=== PATIENT | female | born 1990 | race Asian ===

== ENCOUNTER 2017-02-08 03:04 | Inpatient (IN) | payer MEDICAID ==
[~2017-02-08] VITALS: Ht 165.1 cm; Wt 72.7 kg
[2017-02-08] VITALS (36 sets, daily range): BP systolic 78–137; BP diastolic 53–94; PULSE 69–112; TEMP 97.9–98.5
[2017-02-08 03:58] LABS: BASO % 0.2 % (0.0-2.0); EOS # 0.1 (0.0-0.7); GRAN # 7.4 (1.4-6.5); LYMPH # 3.5 (1.2-3.4); LYMPH % 29.9 % (20.0-51.0); MEAN CELL VOLUME 83 fl (80.0-100.0); MEAN CORPUSCULAR HEMOGLOBIN 28 pg (27.0-31.0); MEAN CORPUSCULAR HGB CONC 34 g/dl (33.0-37.0); MEAN PLATELET VOLUME 10.2 fl (7.4-10.4); MONO # 0.7 (0.1-0.6); MONO % 5.6 % (1.7-9.3); PLATELET COUNT 284 K/mm3 (130-400); RED BLOOD COUNT 4.26 M/mm3 (4.10-5.30); REDCELL DISTRIBUTION WIDTH-CV 13.2 % (11.5-14.5); WHITE BLOOD COUNT 11.8 K/mm3 (4.8-10.8)
[2017-02-08 04:04] LABS: HEMATOCRIT 35.3 % (37.0-47.0)
[2017-02-08 04:25] LABS: AMPHETAMINE URINE NEGATIVE; BARBITURATES URINE NEGATIVE; BENZODIAZEPINES URINE NEGATIVE; BUPRENORPHINE URINE NEGATIVE; METHADONE URINE NEGATIVE; OPIATES URINE NEGATIVE; OXYCODONE URINE NEGATIVE; PHENCYCLIDINE URINE NEGATIVE; PROPOXYPHENE URINE NEGATIVE; THC CANNABINOIDS URINE NEGATIVE
[2017-02-08 04:31] LABS: HIV 1/2 Antibodies Non-Reactive; HIV-1p24 Antigen Non-Reactive
[2017-02-08 04:34] LABS: ADJUSTED CALCIUM 9.2 mg/dL (8.4-10.2); ALBUMIN 3.4 gm/dL (3.5-5.0); BILIRUBIN,TOTAL 0.5 mg/dL (0.0-1.0); CALCIUM 8.7 mg/dL (8.4-10.2); CREATININE, serum 0.53 mg/dL (0.52-1.25); POTASSIUM 3.7 mmol/L (3.4-5.0); TOTAL PROTEIN 6.5 gm/dL (6.4-8.2)
[2017-02-08 05:01] LABS: PH 7 (5-8); URINE APPEARANCE Turbid; URINE BACTERIA Rare /hpf; URINE BILIRUBIN Negative (NEGATIVE); URINE BLOOD 3+ (NEGATIVE); URINE COLOR Yellow; URINE GLUCOSE Negative (NEGATIVE); URINE KETONE Negative (NEGATIVE); URINE RBC >50 /hpf; URINE UROBILINOGEN Negative (NEGATIVE)
[2017-02-08] MEDS ORDERED: FOLIC ACID0.4 MG PO (05:41)
[2017-02-08 09:01] LABS: CHLAMYDIA/TRACH by PCR Female NOT DETECTED; NEISSERIA GON by PCR Female NOT DETECTED
[2017-02-09 07:30] VITALS: BP 106/74; PULSE 79; TEMP 98
[2017-02-09 07:45] LABS: HEMATOCRIT 34.6 % (37.0-47.0); HEMOGLOBIN 11.2 g/dl (12.5-16.0)
[2017-02-09 15:45] VITALS: BP 109/69; PULSE 90; TEMP 98.8
[2017-02-09 20:20] VITALS: BP 110/75; PULSE 81; TEMP 98
[2017-02-10 07:00] VITALS: BP 122/68; PULSE 70; TEMP 98.1
[2017-02-10] MEDS ORDERED: IBU600 MG PO (08:45)
[2017-02-13 13:51] LABS: RUBELLA IGG TORCH EIA Positive (())
== END 2017-02-10 11:20 | disposition home or self-care (01) | DRG 775 ==
LOC: LDRO 03:04 → LDR 03:32 → OB 03:32 → LDRO 02-23 14:57
PROVIDERS: Obstetrics & Gynecology
PROC: 10E0XZZ Delivery of Products of Conception, External Approach (ICD-10-PCS; principal; 2017-02-08)
DX: O42.02 Full-term premature rupture of membranes, onset of labor within 24 hours of rupture (principal); Z3A.38 38 weeks gestation of pregnancy; Z37.0 Single live birth; O09.33 Supervision of pregnancy with insufficient antenatal care, third trimester
CPT/HCPCS: J2540; J2590; J2795; J7120